=== PATIENT | female | born 1970 | race American Indian/Alaskan Native ===

== ENCOUNTER 2016-07-26 17:27 | Emergency (ER) | payer OTHER ==
[2016-07-26 17:27] VITALS: BMI 32.2
[2016-07-26 17:33] VITALS: TEMP 97.7
[2016-07-26 17:49] VITALS: O2SAT 100
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
[2016-07-26 18:36] LABS: BASO # 0.1 K/uL (0.0-0.2); BASO % 0.8 % (0.0-2.0); EOS # 0.2 K/uL (0.0-0.7); HEMATOCRIT 33.3 % (34.0-47.0); LYMPH % 49.4 % (20.0-40.0); MEAN CELL VOLUME 72.4 fl (81.0-99.0); MEAN CORPUSCULAR HEMOGLOBIN 21.2 pg (27.0-31.0); MEAN CORPUSCULAR HGB CONC 29.3 g/dL (33.0-37.0); MEAN PLATELET VOLUME 7.4 fl (7.2-11.7); NEUT # 2.9 K/uL (1.8-7.0); NEUT % 35.8 % (50.0-75.0); NRBC % 0.3 % (0.0-0.0); RED CELL DISTRIBUTION WIDTH 19.6 % (11.5-14.5); WHITE BLOOD COUNT 8.1 K/uL (4.8-10.8)
[2016-07-26 18:42] LABS: ALB/GLOB RATIO 0.9 (1.0-2.1); ALKALINE PHOSPHATASE 78 U/L (38-126); ALT/SGPT 19 U/L (9-52); AST/SGOT 32 U/L (14-36); BILIRUBIN,TOTAL 0.3 mg/dl (0.2-1.3); BLOOD UREA NITROGEN 8 mg/dl (7-17); CALCIUM 8.5 mg/dL (8.4-10.2); CARBON DIOXIDE 25 mmol/L (22-30); CHLORIDE 103 mmol/L (98-107); GFR AFRICAN-AMERICAN > 60; GLUCOSE,RANDOM 102 mg/dL (65-105); SODIUM 143 mmol/l (132-148); TOTAL PROTEIN 7.5 G/DL (6.3-8.2)
[2016-07-26 19:13] LABS: RBC URINE 11 /hpf (0-3); URINE BACTERIA RARE (<OCC); URINE BILIRUBIN NEGATIVE (NEGATIVE); URINE BLOOD NEGATIVE (NEGATIVE); URINE COLOR YELLOW (YELLOW); URINE GLUCOSE (UA) NEG (Normal); URINE KETONE TRACE mg/dL (NEGATIVE); URINE LEUKOCYTE ESTERASE NEG Leu/uL (Negative); URINE PROTEIN >=500 mg/dL (NEGATIVE); URINE UROBILINOGEN 0.2-1.0 mg/dL (0.2-1.0); WBC URINE 3 /hpf (0-5)
--- NOTE | 2016-07-26 19:46 | ED PDOC ---
- Laboratory Results Result Diagrams: 07/26/16 17:50 07/26/16 17:50 - ECG O2 Sat by Pulse Oximetry: 100 (RA) Medical Decision Making Medical Decision Makin:00 Patient signed over to me by Dr. Grcae Hawley pending levels of valproic acid and reassessment. Pt is stable. No recurrent seizures. Valproic levels are therapeutic. Scribe Attestation: Documented by Britney Hopson, acting as a scribe for Erik Herrera MD. Provider Scribe Attestation: All medical record entries made by the Scribe were at my direction and personally dictated by me. I have reviewed the chart and agree that the record accurately reflects my personal performance of the history, physical exam, medical decision making, and the department course for this patient. I have also personally directed, reviewed, and agree with the discharge instructions and disposition Disposition Doctor Will See Patient In The: Office Counseled Patient/Family Regarding: Studies Performed, Diagnosis, Need For Followup - Clinical Impression Clinical Impression: Recurrent seizures - POA Present On Arrival: None - Disposition Referrals: Warner Peña MD [Medical Doctor] - Disposition: Routine/Home Disposition Time: 21:30 Condition: GOOD Additional Instructions: Take medications as instructed. Follow up with your PCP in 2-3 days. Instructions: Recurrent Seizures in Adults (ED) Forms: [facility] ED School/Work Excuse
[2016-07-26] MEDS ORDERED: Divalproex 500 mg ER (ONCE DAILY formulation) PO STA (20:38)
[2016-07-26 20:49] VITALS: BP 134/78; PULSE 79; RESP 16
--- NOTE | 2016-07-27 10:03 | RAD ---
HISTORY: Seizure COMPARISON: 01/08/2016. FINDINGS: LUNGS: The lungs are well inflated and clear. PLEURA: No significant pleural effusion identified, no pneumothorax apparent. CARDIOVASCULAR: Normal. OSSEOUS STRUCTURES: No significant abnormalities. VISUALIZED UPPER ABDOMEN: Normal. OTHER FINDINGS: None. IMPRESSION: No active pulmonary disease.
--- NOTE | 2016-07-27 20:09 | CARD ---
APPROVED REPORT EKG Measurement Heart [id number] <Conclusion> Sinus tachycardia Nonspecific ST and T wave abnormality Abnormal ECG
== END 2016-07-26 21:49 | disposition home or self-care (01) ==
LOC: H.ER 17:27
DX: G40.909 Epilepsy, unspecified, not intractable, without status epilepticus (principal)

== ENCOUNTER 2016-08-17 16:03 | Emergency (ER) | payer OTHER ==
[2016-08-17 16:03] VITALS: BMI 32.2
[2016-08-17 16:24] VITALS: BP 120/65; PULSE 92; RESP 18; TEMP 98; O2SAT 99
[2016-08-17] MEDS ORDERED: Atrop/Hyos/Scop/PhenoB Elixir PO STA (17:01)
--- NOTE | 2016-08-17 18:40 | ED PDOC ---
HPI: General Adult Time Seen by Provider: 08/17/16 16:34 Chief Complaint (Nursing): Back Pain Chief Complaint (Provider): Left lower back pain, hip pain Pain Scale Rating Of: 5 Additional Complaint(s): Pt states last night she bent over to pick something up and felt pain in the back and left hip. No numbness/tingling. Pt states she took tylenol but it did not help. No urinary complaints. Past Medical History Reviewed: Historical Data, Nursing Documentation, Vital Signs Vital Signs: Last Vital Signs Temp 98 F 08/17/16 16:20 Pulse 92 H 08/17/16 16:20 Resp 18 08/17/16 16:20 BP 120/65 08/17/16 16:20 Pulse Ox 99 08/17/16 16:20 - Medical History PMH: Seizures (absence) Denies: Chronic Kidney Disease - Surgical History Surgical History: Hernia Repair, - Family History Family History: States: Unknown Family Hx - Living Arrangements Living Arrangements: With Family - Social History Current smoker - smoking cessation education provided: No - Immunization History Hx Influenza Vaccination: No - Home Medications Home Medications: Ambulatory Orders Medication Instructions Recorded Lamotrigine [Lamictal] 100 mg PO TID 01/13/15 Ibuprofen [Motrin] 600 mg PO TID PRN #30 tab 01/08/16 traMADol [Ultram] 50 mg PO Q8 PRN #12 tab 01/08/16 Cyclobenzaprine [Cyclobenzaprine 10 mg PO Q8H #20 tab 08/17/16 HCl] - Allergies Allergies/Adverse Reactions: Allergies Allergy/AdvReac Type Severity Reaction Status Date / Time No Known Allergies Allergy Verified 09/08/14 23:00 Review of Systems ROS Statement: Except As Marked, All Systems Reviewed And Found Negative Musculoskeletal: Positive for: Other Physical Exam - Reviewed Nursing Documentation Reviewed: Yes Vital Signs Reviewed: Yes - Physical Exam Appears: Positive for: Well, Non-toxic, No Acute Distress Head Exam: Positive for: ATRAUMATIC, NORMAL INSPECTION, NORMOCEPHALIC Skin: Positive for: Normal Color, Warm, DRY Eye Exam: Positive for: Normal appearance ENT: Positive for: Normal ENT Inspection Neck: Positive for: Normal, Painless ROM Cardiovascular/Chest: Positive for: Regular Rate, Rhythm Respiratory: Positive for: Normal Breath Sounds. Negative for: Accessory Muscle Use, Respiratory Distress Pulses-Post. Tibialis (L): 2+ Pulses-Post. Tibialis (R): 2+ Back: Positive for: Normal Inspection Extremity: Positive for: Normal ROM, Other (Stretching/pain sensation with left hip flexion and adduction across midline). Negative for: Tenderness, Deformity , Swelling Neurologic/Psych: Positive for: Alert - ECG O2 Sat by Pulse Oximetry: 99 Medical Decision Making Medical Decision Making: Pt reports feeling better after toradol and flexeril. Disposition - Clinical Impression Clinical Impression: Muscle pain - Patient ED Disposition Is Patient to be Admitted: No Counseled Patient/Family Regarding: Diagnosis, Need For Followup, Rx Given - Disposition Referrals: [facility] [Outside] Disposition: Routine/Home Disposition Time: 18:37 Condition: GOOD Prescriptions: Cyclobenzaprine [Cyclobenzaprine HCl] 10 mg PO Q8H #20 tab Instructions: Musculoskeletal Pain (ED)
== END 2016-08-17 18:44 | disposition home or self-care (01) ==
LOC: H.ER 16:03
DX: M79.1 Myalgia (principal)

== ENCOUNTER 2016-08-22 14:26 | Emergency (ER) | payer OTHER ==
[2016-08-22 14:26] VITALS: BMI 32.2
[2016-08-22 14:42] VITALS: BP 133/92; PULSE 88; RESP 16; TEMP 98.6; O2SAT 100
[2016-08-22] MEDS ORDERED: Oxycodone/Acetaminophen 5/325 mg Tab PO STA (15:00)
[2016-08-22] MEDS ORDERED: Oxycodone/Acetaminophen 5/325 mg Tab ONE (15:04)
--- NOTE | 2016-08-22 15:06 | ED PDOC ---
Lower Extremity Pain/Injury Time Seen by Provider: 08/22/16 14:44 Chief Complaint (Nursing): Lower Extremity Problem/Injury Chief Complaint (Provider): Left low back and hip pain for 1 week History Per: Patient History/Exam Limitations: no limitations Onset/Duration Of Symptoms: Days Current Symptoms Are (Timing): Still Present Severity: Moderate Pain Scale Rating Of: 6 Additional Complaint(s): Pt was seen in ER and given a muscle relaxor. PT states it helped some but she thought the pain would be gone by now. No numbness/tingling. No bladder or bowel incontinence. Pt states she has not made a f/u appointment with Dr. Diehl Past Medical History Reviewed: Historical Data, Nursing Documentation, Vital Signs Vital Signs: Last Vital Signs Temp 98.6 F 08/22/16 14:41 Pulse 88 08/22/16 14:41 Resp 16 08/22/16 14:41 BP 133/92 H 08/22/16 14:41 Pulse Ox 100 08/22/16 14:41 - Medical History PMH: Seizures (absence) Denies: Chronic Kidney Disease - Surgical History Surgical History: Hernia Repair, - Family History Family History: States: Unknown Family Hx - Living Arrangements Living Arrangements: With Family - Social History Current smoker - smoking cessation education provided: No Alcohol: None Drugs: Denies - Immunization History Hx Influenza Vaccination: No - Home Medications Home Medications: Ambulatory Orders Medication Instructions Recorded Lamotrigine [Lamictal] 100 mg PO TID 01/13/15 Divalproex [Depakote] 500 mg PO BID 08/22/16 oxyCODONE/Acetaminophen [Percocet 1 ea PO Q6H PRN #15 tab 08/22/16 5/325 mg Tab] - Allergies Allergies/Adverse Reactions: Allergies Allergy/AdvReac Type Severity Reaction Status Date / Time No Known Allergies Allergy Verified 08/22/16 14:40 Review of Systems ROS Statement: Except As Marked, All Systems Reviewed And Found Negative Musculoskeletal: Positive for: Other (LEft hip pain ) Physical Exam - Reviewed Nursing Documentation Reviewed: Yes Vital Signs Reviewed: Yes - Physical Exam Appears: Positive for: Well, Non-toxic, No Acute Distress Head Exam: Positive for: ATRAUMATIC, NORMAL INSPECTION, NORMOCEPHALIC Skin: Positive for: Normal Color, Warm, DRY Eye Exam: Positive for: Normal appearance ENT: Positive for: Normal ENT Inspection Neck: Positive for: Normal, Painless ROM Cardiovascular/Chest: Positive for: Regular Rate, Rhythm Respiratory: Positive for: Normal Breath Sounds. Negative for: Accessory Muscle Use, Respiratory Distress Back: Positive for: Normal Inspection. Negative for: Muscle Spasm Extremity: Positive for: Normal ROM, Tenderness (Left lateral hip, over the greater trochanter ) Neurologic/Psych: Positive for: Alert, Oriented - ECG O2 Sat by Pulse Oximetry: 100 Pulse Ox Interpretation: Normal Disposition - Clinical Impression Clinical Impression: Hip pain - Patient ED Disposition Is Patient to be Admitted: No Counseled Patient/Family Regarding: Diagnosis, Need For Followup, Rx Given - Disposition Referrals: [facility] [Outside] Disposition: Routine/Home Disposition Time: 16:42 Condition: GOOD Prescriptions: oxyCODONE/Acetaminophen [Percocet 5/325 mg Tab] 1 ea PO Q6H PRN #15 tab PRN Reason: Pain, Severe (8-10) Instructions: Hip Pain (ED)
--- NOTE | 2016-08-22 16:37 | RAD ---
HISTORY: pain for 1 week after bending to crop picker something COMPARISON: No prior FINDINGS: BONES: Normal. No fracture. JOINTS: Normal. No osteoarthritis. SOFT TISSUE: Normal. OTHER FINDINGS: Calcified fibroid uterus.. IMPRESSION: No fracture.
== END 2016-08-22 16:49 | disposition home or self-care (01) ==
LOC: H.ER 14:26
DX: M25.552 Pain in left hip (principal)